=== PATIENT | female | born 1980 | race Caucasian/White ===

== ENCOUNTER 2021-01-31 21:54 | Emergency (ER) | payer OTHER ==
[2021-01-31 22:40] LABS: HEMOGLOBIN 12.2 gm/dl (12.3-15.3); RED BLOOD COUNT 4.18 M/UL (4.00-5.10); WHITE BLOOD COUNT 6.2 K/UL (4.5-11.0)
[2021-01-31 23:03] LABS: BUN/CREATININE RATIO 28 (0-10)
== END 2021-02-01 00:15 | disposition home or self-care (01) ==
LOC: ER1 21:54
PROVIDERS: Physician Assistant
DX: R07.89 Other chest pain (principal); R00.2 Palpitations; Z20.822 Contact with and (suspected) exposure to COVID-19; Z23 Encounter for immunization
CPT/HCPCS: 0240U; 71045; 80053; 80307; 81001; 82550; 82553; 83735; 83874; 83880; 84439; 84443; 84484; 84703; 85025; 90715; 93005; 99285

== ENCOUNTER 2021-02-03 16:55 | Emergency (ER) | payer OTHER ==
[2021-02-03 17:35] LABS: HEMOGLOBIN 12.8 gm/dl (12.3-15.3); RED BLOOD COUNT 4.31 M/UL (4.00-5.10); WHITE BLOOD COUNT 8.5 K/UL (4.5-11.0)
[2021-02-03 18:01] LABS: BUN/CREATININE RATIO 24 (0-10)
[2021-02-03] MEDS ORDERED: HYDROXYZINE HCL50 MG PO (21:47)
== END 2021-02-03 21:56 | disposition home or self-care (01) ==
LOC: ER1 16:55
PROVIDERS: Nurse Practitioner
DX: R07.89 Other chest pain (principal); Z88.1 Allergy status to other antibiotic agents
CPT/HCPCS: 71045; 80053; 82550; 82553; 83735; 83874; 84439; 84443; 84484; 84703; 85025; 93005; 99285

== ENCOUNTER → 2021-02-14 | Outpatient (CLI) | payer OTHER ==
[~2021-02-14] MED LIST: HYDROXYZINE HCL50 MG PO
== END ==
LOC: HEART 5 07:24
DX: R07.9 Chest pain, unspecified (principal)

== ENCOUNTER → 2021-10-31 | Outpatient (CLI) | payer OTHER | LOC: CT 15:30 | DX: R06.02 Shortness of breath (principal); Z86.16 Personal history of COVID-19 | CPT/HCPCS: 71275; Q9967 ==